=== PATIENT | male | born 1950 | race Caucasian/White ===

== ENCOUNTER 2017-03-24 06:54 | Emergency (ER) | payer MEDICARE, OTHER ==
[~2017-03-24] VITALS: Ht 175.3 cm; Wt 95.0 kg
[2017-03-24] MEDS ORDERED: SODIUM CHLORIDE FLUSH 10ML SYR IVF ONE (07:30)
[2017-03-24] MEDS ORDERED: MECLIZINE CHEWABLE 25 MG TAB PO ONE (07:30)
[2017-03-24] MEDS ORDERED: ONDANSETRON 2MG/ML, 2ML IVPush ONE (07:30)
[2017-03-24] MEDS ORDERED: SODIUM CHLORIDE 0.9% 1,000ML IVBOLUS ONE (07:30)
[2017-03-24] MEDS ORDERED: MECLIZINE CHEWABLE 25 MG TAB ONE (07:36)
[2017-03-24] MEDS ORDERED: ONDANSETRON 2MG/ML, 2ML ONE (07:36)
[2017-03-24 07:54] LABS: BLOOD UREA NITROGEN 16 mg/dL (7-18)
[2017-03-24 08:05] LABS: IS PT STATUS REG ER OR PRE ER? YES
[2017-03-24 09:05] VITALS: BP 137/86
== END 2017-03-24 09:07 | disposition home or self-care (01) ==
LOC: ED 07:48
DX: R42 Dizziness and giddiness (principal); E11.9 Type 2 diabetes mellitus without complications; I10 Essential (primary) hypertension; E78.00 Pure hypercholesterolemia, unspecified; Z87.891 Personal history of nicotine dependence
CPT/HCPCS: 36415; 71010; 80048; 82040; 84484; 85025; 93005; 96361; 96374; 99285; J2405; J7030